=== PATIENT | male | born 1955 | race African-American/Black ===

== ENCOUNTER 2019-04-02 11:55 | Inpatient (IN) | payer BC ==
[~2019-04-02] VITALS: Ht 172.7 cm; Wt 83.0 kg
[2019-04-02] MEDS ORDERED: SODIUM CHLORIDE 0.9% 1,000 ML IV ONE (12:23)
[2019-04-02 13:01] LABS: HEMATOCRIT. 44.4 % (42.0-52.0); HEMOGLOBIN. 15.2 g/dL (14.0-18.0); MEAN CORPUSCULAR HEMOGLOBIN 30.6 pg (28.0-32.0); MEAN CORPUSCULAR VOLUME 89.5 fL (80.0-94.0); MEAN PLATELET VOLUME 10.2 fl (7.4-10.4); PLATELET 142 x1000/uL (130-400); RED BLOOD CELL COUNT 4.96 mill/uL (4.7-6.1); RED CELL DISTRIBUTION WIDTH 13.3 % (11.6-14.6)
[2019-04-02 13:11] LABS: CHLORIDE 107 mEq/L (98-107)
[2019-04-02 13:27] LABS: PLATELET ESTIMATE NORMAL
[2019-04-02 15:28] LABS: CLARITY URINE CLEAR (CLEAR); COLOR URINE YELLOW (YELLOW); KETONES URINE TRACE (NEGATIVE); LEUKOCYTE ESTERASE URINE NEGATIVE (NEGATIVE); NITRITE URINE NEGATIVE (NEGATIVE); OCCULT BLOOD URINE NEGATIVE (NEGATIVE); PH URINE 5.5 (4.5-8.0); PROTEIN URINE TRACE (NEGATIVE); SPECIFIC GRAVITY URINE 1.027 (1.005-1.030); UROBILINOGEN URINE 0.2 E.U./dL (0.2-1.0)
[2019-04-02 16:00] VITALS: BP 116/74
[2019-04-02] MEDS ORDERED: TEMAZEPAM 15MG CAPSULE PO PRN (17:00)
[2019-04-02] MEDS ORDERED: ACETAMINOPHEN 325MG TABLET PO PRN (17:00)
[2019-04-02] MEDS ORDERED: PROMETHAZINE/DEXTROMETHORPHAN 6.25-15MG/5ML BOTTLE 120ML PO PRN (17:00)
[2019-04-02] MEDS ORDERED: DOCUSATE SODIUM 100MG CAPSULE PO PRN (17:00)
[2019-04-02] MEDS ORDERED: IPRATROPIUM/ALBUTEROL 0.5-3(2.5)MG/3ML NEB HHN PRN (17:00)
[2019-04-02] MEDS ORDERED: CLONIDINE 0.1MG TABLET PO PRN (17:00)
[2019-04-02] MEDS ORDERED: MAGNESIUM/ALUMINUM HYDROXIDE/SIMETHICONE 30ML UDC PO PRN (17:00)
[2019-04-02 17:30] VITALS: BP 116/74
[2019-04-02 17:55] VITALS: BP 116/74
[2019-04-02] MEDS ORDERED: GUAIFENESIN-DM 200MG-20MG/10ML UDC PO PRN (18:00)
[2019-04-02] MEDS ORDERED: D-ME473S8 MT (18:01)
[2019-04-02] MEDS ORDERED: PHEN1CAP PO (18:01)
[2019-04-02 20:00] VITALS: BP 114/59
[2019-04-02] MEDS ORDERED: AZITHROMYCIN 500 MG in DEXT 5% WATER 250 ML IV SCH (20:00)
[2019-04-02] MEDS ORDERED: MVI, ADULT NO.1 10 ML, FOLIC ACID 1 MG, THIAMINE HCL 100 MG in SODIUM CHLORIDE 0.9% 1,0... IV SCH ×4 (20:00)
[2019-04-02] MEDS: GUAIFENESIN 600MG ER TABLET PO SCH (21:40)
[2019-04-03] VITALS: BP 130/65
[2019-04-03 04:00] VITALS: BP 121/67
[2019-04-03 07:40] LABS: BASOPHILS % 0.9 % (0.0-2.0); EOSINOPHILS % 0.8 % (0.0-5.0); HEMATOCRIT. 39.4 % (42.0-52.0); HEMOGLOBIN. 13.4 g/dL (14.0-18.0); LYMPHOCYTES % 59.2 % (20.0-50.0); MEAN CORPUSCULAR HEMOGLOBIN 30.2 pg (28.0-32.0); MEAN CORPUSCULAR VOLUME 88.6 fL (80.0-94.0); MEAN PLATELET VOLUME 10.3 fl (7.4-10.4); MONOCYTES % 13.5 % (2.0-8.0); NEUTROPHILS % 25.6 % (40.0-76.0); PLATELET 137 x1000/uL (130-400); RED BLOOD CELL COUNT 4.45 mill/uL (4.7-6.1); RED CELL DISTRIBUTION WIDTH 13.1 % (11.6-14.6)
[2019-04-03 08:00] VITALS: BP 131/68
[2019-04-03 08:18] LABS: CHLORIDE 111 mEq/L (98-107)
[2019-04-03] MEDS: GUAIFENESIN 600MG ER TABLET PO SCH (10:29)
[2019-04-03 12:00] VITALS: BP 134/72
[2019-04-03 13:12] VITALS: BP 134/72
== END 2019-04-03 15:04 | disposition home or self-care (01) | DRG 74 ==
LOC: ER 11:55 → 5WST 14:37 → EDBEDREQ 14:40 → ENRESERV 16:17
PROVIDERS: ADMIT Internal Medicine; ATTEND Internal Medicine
DX: G90.8 Other disorders of autonomic nervous system (principal); D72.825 Bandemia; E78.5 Hyperlipidemia, unspecified; J20.9 Acute bronchitis, unspecified
CPT/HCPCS: 36415; 71045; 80048; 81003; 83880; 84484; 85379; 87804; 93005; 93970; 99285; J0456; J3411; J3490; J7030; J7060